=== PATIENT | female | born 1995 | race Two or more races ===

== ENCOUNTER → 2020-11-24 | Outpatient (CLI) | payer OTHER | END | disposition home or self-care (01) | LOC: LAB 16:23 | PROVIDERS: ATTEND Nurse Practitioner Family | DX: Z20.828 Contact with and (suspected) exposure to other viral communicable diseases (principal) | CPT/HCPCS: C9803; U0003 ==

== ENCOUNTER 2021-07-10 05:37 | Emergency (ER) | payer OTHER ==
[~2021-07-10] VITALS: Ht 154.9 cm; Wt 65.8 kg
[2021-07-10 05:43] VITALS: BP 111/72
[2021-07-10 07:33] LABS: Basophils # (auto) 0.2 10 ^3/uL (0-0.2); Basophils % (auto) 1.1 % (0.0-2.0); Eosinophils # (auto) 0.2 10 ^3/uL (0-0.8); Eosinophils % (auto) 1.3 % (0.0-7.0); Hematocrit 38.8 % (36.0-46.0); Hemoglobin 13.6 g/dL (12.2-16.2); Lymphocytes # (auto) 2.1 10 ^3/uL (0.4-5.4); Lymphocytes % (auto) 12.8 % (10.0-50.0); Mean Corpuscular Hemoglobin 30.2 pg (28.0-32.0); Mean Corpuscular Volume 86.1 fL (80.0-100.0); Monocytes # (auto) 1.2 10 ^3/uL (0-1.3); Monocytes % (auto) 7.4 % (0.0-12.0); Neutrophils # (auto) 12.7 10 ^3/uL (1.6-8.6); Neutrophils % (auto) 77.4 % (37.0-80.0); Nucleated Red Blood Cells % 0.1 %; Red Blood Cells 4.51 10^6/uL (4.0-5.20); Red Cell Distribution Width 12.8 % (11.8-14.3); White Blood Cell 16.4 10^3/uL (4.4-10.8)
== END 2021-07-10 08:24 | disposition home or self-care (01) ==
LOC: EEVIPCON 05:37 → ER 05:37
DX: O26.892 Other specified pregnancy related conditions, second trimester (principal); O99.112 Other diseases of the blood and blood-forming organs and certain disorders involving the immune mechanism complicating pregnancy, second trimester; M79.18 Myalgia, other site; D72.829 Elevated white blood cell count, unspecified; Z3A.15 15 weeks gestation of pregnancy
CPT/HCPCS: 36415; 76801; 84702; 85025

== ENCOUNTER 2021-10-06 09:37 | Observation (INO) | payer OTHER ==
[2021-10-06] MEDS ORDERED: PREN-96 PO (11:40)
== END 2021-10-06 11:52 | disposition home or self-care (01) ==
LOC: LDRP 09:37
PROVIDERS: ADMIT Obstetrics & Gynecology; ATTEND Obstetrics & Gynecology
DX: O62.9 Abnormality of forces of labor, unspecified (principal); O99.891 Other specified diseases and conditions complicating pregnancy; M54.50 Low back pain, unspecified; O26.892 Other specified pregnancy related conditions, second trimester; N89.8 Other specified noninflammatory disorders of vagina; O42.912 Preterm premature rupture of membranes, unspecified as to length of time between rupture and onset of labor, second trimester; Z3A.27 27 weeks gestation of pregnancy
CPT/HCPCS: 59025; 81002; 84112; G0378; G0379; Q0114

== ENCOUNTER 2023-02-15 19:07 | Emergency (ER) | payer OTHER ==
[~2023-02-15] VITALS: Ht 154.9 cm; Wt 68.3 kg
[~2023-02-15 19:07] MED LIST: PREN-96 PO
[2023-02-15] MEDS ORDERED: ALBUTEROL SULF 2.5 MG/0.5ML(0.5%) NEB SOLN NEB ONE (20:15)
[2023-02-15] MEDS ORDERED: IPRATROPIUM BROM 0.5 MG/2.5ML INH SOL NEB ONE (20:15)
[2023-02-15 20:51] LABS: Basophils # (auto) 0.1 10 ^3/uL (0-0.2); Basophils % (auto) 0.8 % (0.0-2.0); Eosinophils # (auto) 0.2 10 ^3/uL (0-0.8); Eosinophils % (auto) 1.7 % (0.0-7.0); Hematocrit 40.6 % (36.0-46.0); Lymphocytes # (auto) 2.7 10 ^3/uL (0.4-5.4); Mean Corpuscular Hemoglobin 29.2 pg (28.0-32.0); Mean Corpuscular Hgb Conc. 34.4 g/dL (32.0-36.0); Monocytes # (auto) 1.8 10 ^3/uL (0-1.3); Monocytes % (auto) 12.8 % (0.0-12.0); Neutrophils # (auto) 9.2 10 ^3/uL (1.6-8.6); Neutrophils % (auto) 65.7 % (37.0-80.0); Nucleated Red Blood Cells % 0.4 %; Red Blood Cells 4.78 10^6/uL (4.0-5.20); Red Cell Distribution Width 12.3 % (11.8-14.3)
[2023-02-15 20:58] LABS: Albumin 3.6 g/dL (3.4-5.0); Potassium 3.6 mmol/L (3.5-5.1)
[2023-02-15 21:02] LABS: BUN/Creatinine Ratio 13.1 (10.0-20.0); Bilirubin, Total 0.2 mg/dL (0.2-1.0); Total Protein 8.8 g/dL (6.4-8.2)
[2023-02-15] MEDS ORDERED: ALBU108A5 IN (21:30)
[2023-02-15] MEDS ORDERED: PRED20TA2 PO (21:30)
[2023-02-15] MEDS ORDERED: predniSONE 20 MG TAB PO ONE (21:30)
[2023-02-15] MEDS ORDERED: AZITTAB PO (21:30)
[2023-02-15 23:21] VITALS: BP 133/95
== END 2023-02-15 23:26 | disposition home or self-care (01) ==
LOC: ER 19:07
DX: J40 Bronchitis, not specified as acute or chronic (principal); R10.2 Pelvic and perineal pain; Z20.822 Contact with and (suspected) exposure to COVID-19
CPT/HCPCS: 36415; 71045; 80053; 84702; 85025; 87070; 87426; 87804; 87880; 94640; 99284; J7512